=== PATIENT | male | born 1990 | race Caucasian/White ===

== ENCOUNTER 2021-11-29 16:22 | Emergency (ER) | payer OTHER ==
[2021-11-29 16:59] LABS: HEMOGLOBIN 16.1 gm/dl (14.0-17.5); RED BLOOD COUNT 5.15 M/UL (4.20-5.50); WHITE BLOOD COUNT 11.3 K/UL (4.5-11.0)
[2021-11-29 17:19] LABS: BUN/CREATININE RATIO 13 (0-10)
[2021-11-29] MEDS ORDERED: METOPROLOL SUCC25 MG PO (21:24)
== END 2021-11-29 22:01 | disposition home or self-care (01) ==
LOC: ER1 16:22
PROVIDERS: Emergency Medicine
DX: R07.89 Other chest pain (principal); K21.9 Gastro-esophageal reflux disease without esophagitis; I10 Essential (primary) hypertension; R00.0 Tachycardia, unspecified; E66.01 Morbid (severe) obesity due to excess calories; Z79.899 Other long term (current) drug therapy
CPT/HCPCS: 71045; 80053; 82550; 82553; 83874; 84484; 85025; 85379; 85610; 85730; 93005; 99285